=== PATIENT | female | born 1975 | race African-American/Black ===

== ENCOUNTER → 2017-02-07 | Outpatient (CLI) | payer MEDICAID ==
--- NOTE | 2017-02-07 14:31 | RADIOLOGY REPORT (SQ) ---
EXAM DESCRIPTION: BARIUM SWALLOW PHARYNX ONLY COMPLETED DATE/TIME: 02/07/2017 9:23 am REASON FOR STUDY: DYSPHAGIA (R13.10) R13.10 DYSPHAGIA, UNSPECIFIED COMPARISON: None. TECHNIQUE: Under fluoroscopic guidance, patient ingested effervescent granules followed by thick and thin barium. Fluoroscopic spot images and routine radiographic images acquired and stored on PACS. 12 MM BARIUM TABLET GIVEN: Yes. No significant delay in passage. LIMITATIONS: None. FLUOROSCOPY TIME: FLUORO TIME: 1 minutes 19 seconds of fluoroscopy was used. 7 images saved to PACS. FINDINGS: NEUROMUSCULAR COORDINATION OF SWALLOW: Normal. No aspiration. ESOPHAGEAL MOTILITY: Normal peristalsis. Minimal tertiary contractions seen the proximal esophagus. ESOPHAGEAL MUCOSA: Normal mucosa without masses or ulceration. GASTRO-ESOPHAGEAL JUNCTION: Very small sliding hiatal hernia. Reflux seen into the hernia. NON-GI TRACT STRUCTURES: No significant finding. OTHER: No other significant finding. IMPRESSION: 1. MINIMAL TERTIARY CONTRACTIONS OF THE PROXIMAL ESOPHAGUS. 2. SMALL SLIDING HIATAL HERNIA WITH MINIMAL REFLUX SEEN. RECOMMENDATION: Follow-up as clinically indicated. COMMENT: Quality ID [id number]: Final reports for procedures using fluoroscopy that document radiation exp osure indices, or exposure time and number of fluorographic images (if radiation exposure indices are not available) TECHNICAL DOCUMENTATION: JOB ID: [id number] [employer]- All Rights Reserved
== END ==
LOC: RAD 08:45
PROVIDERS: ATTEND Internal Medicine Gastroenterology
DX: R13.10 Dysphagia, unspecified (principal)
CPT/HCPCS: 74210